=== PATIENT | female | born 1955 | race Caucasian/White ===

== ENCOUNTER 2020-07-21 07:39 | Outpatient (CLI) | payer MEDICARE, SELFPAY ==
--- NOTE | ~2020-07-21 | MR_ITS ---
EXAMINATION: MR MRCP wo/w con/w 3D wo ind DATE: 07/21/2020 09:31 INDICATION: Epigastric abdominal pain. Jaundice. TECHNIQUE: Magnetic resonance imaging (MRI) of the abdomen was performed without and with 17 mL Multi Arleth intravenous contrast. Sequences included coronal T2-weighted FS FSE, coronal T2-weighted FSE, a xial T1-weighted LAVA, coronal FS FIESTA, axial dual-echo T1-weighted SPGR, coronal lava-FLEX, sagitt al T2-weighted FSE, axial T2-weighted FSE, and axial DWI. Thick-slab T2-weighted FSE images were obta ined for magnetic resonance cholangiopancreatography (MRCP). Maximum intensity projection 3-D reconst ructions of the volumetric data were created by the technologist. Postcontrast sequences included cor onal LAVA-flex and time course of axial T1-weighted LAVA. COMPARISON: None. FINDINGS: ABDOMEN MRI: There are small pleural effusions. There is a large sliding hiatal hernia. There is diff use hepatic steatosis. There is a 12 mm cyst in the liver. There is severe intrahepatic biliary duct dilatation. There is material in the common hepatic duct. There is a stricture of the common duct. Th ere is severe dilatation of the pancreatic duct. There is a 3.5 cm mass in the head of the pancreas. The spleen and left adrenal gland are normal. There are masses in right adrenal gland containing micr oscopic fat measuring up to 2.7 cm, consistent with adenomas. Right kidney is normal. There is modera te left hydronephrosis and proximal hydroureter. There are no dilated loops of bowel. There is a smal l volume of ascites. There is mild periportal lymphadenopathy. ABDOMEN MRCP: There is a stricture of the common duct with severe intrahepatic biliary duct dilatatio n and dilatation of the common hepatic duct. There is material in the common hepatic duct. There is a stricture of the pancreatic duct in the head of the pancreas with severe dilatation of the duct in t he pancreatic body and tail. IMPRESSION: 1. 3.5 cm mass in the head of the pancreas, consistent with primary adenocarcinoma. 2. Severe biliary duct dilatation and severe pancreatic duct dilatation secondary to the pancreatic h ead mass. Material in the common hepatic duct may be sludge and/or stones. 3. Mild periportal lymphadenopathy, which is indeterminate for metastatic disease. 4. Small volume of ascites and small pleural effusions. 5. Large sliding hiatal hernia. 6. Moderate left hydronephrosis and proximal hydroureter of uncertain etiology. Consider CT urogram. Reviewed, dictated and finalized at location A. IMPRESSION: 1. 3.5 cm mass in the head of the pancreas, consistent with primary adenocarcin cash. 2. Severe biliary duct dilatation and severe pancreatic duct dilatation seconda ry to the pancreatic head mass. Material in the common hepatic duct may be slud ge and/or stones. 3. Mild periportal lymphadenopathy, which is indeterminate for metastatic disea se. 4. Small volume of ascites and small pleural effusions. 5. Large sliding hiatal hernia. 6. Moderate left hydronephrosis and proximal hydroureter of uncertain etiology. Consider CT urogram.
[2020-07-21 08:40] LABS: Estimated Glomerular Filt Rate 45
== END 2020-07-21 07:40 | disposition home or self-care (01) ==
PROVIDERS: PCP Family Medicine
DX: R10.13 Epigastric pain (principal); K44.9 Diaphragmatic hernia without obstruction or gangrene; R18.8 Other ascites; J90 Pleural effusion, not elsewhere classified
CPT/HCPCS: 74183; 76376; A9577